=== PATIENT | female | born 1935 | race Caucasian/White ===

== ENCOUNTER 2017-02-16 19:19 | Emergency (ER) | payer MEDICARE ==
[~2017-02-16] VITALS: Ht 157.5 cm; Wt 61.2 kg
[2017-02-16] MEDS ORDERED: IV NORMAL SALINE 500 ML BAG IV ONE (19:30)
[2017-02-16 19:51] LABS: BASOPHILS # (AUTO) 0.1 K/uL (0.0-8.0); BASOPHILS % (AUTO) 1.1 % (0.0-2.0); EOSINOPHILS # (AUTO) 0.6 K/uL (0.0-0.7); EOSINOPHILS % (AUTO) 6.4 % (0.0-7.0); HEMATOCRIT 31.8 % (37-47); HEMOGLOBIN 10.8 G/DL (12.0-16.0); LYMPHOCYTES # (AUTO) 3.5 K/UL (0.8-4.8); LYMPHOCYTES % (AUTO) 35.2 % (20.5-51.5); MEAN CORPUSCULAR HEMOGLOBIN 30.5 UUG (27.0-31.0); MEAN CORPUSCULAR HGB CONC 34 g/dL (32.0-37.0); MEAN CORPUSCULAR VOLUME 89.9 FL (81.0-99.0); MONOCYTES % (AUTO) 10.3 % (0.0-11.0); NEUTROPHILS # (AUTO) 4.8 K/UL (1.8-8.9); PLATELET COUNT (AUTO) 259 K/UL (150-450); RED BLOOD CELL COUNT(AUTO) 3.54 MIL/UL (4.2-5.4)
[2017-02-16 20:03] LABS: ALBUMIN 3.3 g/dL (3.4-5.0); BILIRUBIN,DIRECT 0.1 mg/dL (0.0-0.2); BILIRUBIN,TOTAL 0.4 mg/dL (0.2-1.0); CALCIUM 8.6 mg/dL (8.5-10.1); CREATININE 1.2 mg/dL (0.6-1.3); POTASSIUM 4.1 mmol/L (3.5-5.1); TOTAL PROTEIN, SERUM 5.8 g/dL (6.4-8.2)
--- NOTE | 2017-02-16 20:22 | NUR ---
In and Out straight cath complete,Urine obtained and sent to Lab. Female wittness present at bedside for catheterization.
[2017-02-16] MEDS ORDERED: DORZ10DR11 OP (20:36)
[2017-02-16] MEDS ORDERED: ASPI-605 PO (20:36)
[2017-02-16] MEDS ORDERED: SERT25TA5 PO (20:36)
[2017-02-16] MEDS ORDERED: ENAL20TA PO (20:36)
[2017-02-16] MEDS ORDERED: LATANOPROST OP (20:36)
[2017-02-16] MEDS ORDERED: PRED5DRO7 OP (20:36)
[2017-02-16] MEDS ORDERED: ATOR40TA PO (20:36)
[2017-02-16] MEDS ORDERED: QUET25TA PO (20:36)
[2017-02-16] MEDS ORDERED: CALC1TAB3 PO (20:36)
[2017-02-16] MEDS ORDERED: BUSPAR PO (20:36)
[2017-02-16] MEDS ORDERED: CYAN10009 PO (20:36)
[2017-02-16 20:53] LABS: *BILIRUBIN,URIN NEGATIVE (NEGATIVE); *BLOOD, URINE NEGATIVE (NEGATIVE); *CLARITY,URINE CLEAR (CLEAR); *COLOR,URINE YELLOW (YELLOW); *KETONES,URINE NEGATIVE (NEGATIVE); *PROTEIN,URINE 1+ (NEGATIVE); *UROBILINOGEN,URINE 0.2 E.U./dl (NORMAL); LEUKOCYTE ESTERASE ,URINE NEGATIVE (NEGATIVE); NITRITE, URINE NEGATIVE (NEGATIVE); PH,URINE 7.5 (5.0-8.0); UGLUCOSE NEGATIVE (NEGATIVE)
[2017-02-16 21:02] LABS: MUCUS,URINE MODERATE /LPF (0-FEW); SQUAMOUS EPITHELIAL CELL,UR FEW /HPF (NONE SEEN); WBC,URINE 0-3 /HPF (0-3)
--- NOTE | 2017-02-16 21:27 | NUR ---
Patient discharged to home in stable conditon. Written and verbal after care instructions given. Patient verbalizes understanding of instructions. Ambulated from ER with assist, all belongings with patient. To be driven home by family member.
[2017-02-16 21:28] VITALS: BP 138/78
== END 2017-02-16 21:35 | disposition home or self-care (01) ==
LOC: ER 19:19
DX: E86.0 Dehydration (principal); R55 Syncope and collapse; F03.90 Unspecified dementia, unspecified severity, without behavioral disturbance, psychotic disturbance, mood disturbance, and anxiety; E78.5 Hyperlipidemia, unspecified; I10 Essential (primary) hypertension; Z79.82 Long term (current) use of aspirin
CPT/HCPCS: 36415; 51702; 71010; 80048; 80076; 81001; 84484; 85025; 85730; 93005; 96360; 99285; A4663; J7030; 70030-TC

== ENCOUNTER 2018-09-06 13:49 | Emergency (ER) | payer MEDICARE ==
[~2018-09-06] VITALS: Ht 154.9 cm; Wt 47.6 kg
[~2018-09-06 13:49] MED LIST: ASPI-605 PO; ATOR40TA PO; BUSPAR PO; CALC1TAB3 PO; CYAN10009 PO; DORZ10DR11 OP; ENAL20TA PO; LATANOPROST OP; PRED5DRO16 OP; QUET25TA PO; SERT25TA5 PO
[2018-09-06] MEDS ORDERED: MEMA10TA21 PO (14:07)
[2018-09-06] MEDS ORDERED: TIMOLOL MALEATE 0.5% OP (14:09)
[2018-09-06] MEDS ORDERED: EYE OP (14:09)
[2018-09-06] MEDS ORDERED: SERTRALINE HCL 50 MG (14:09)
[2018-09-06] MEDS ORDERED: DONEPEZIL HCL 5 MG (14:09)
[2018-09-06] MEDS ORDERED: ENALAPRIL MALEATE 20 MG (14:09)
--- NOTE | 2018-09-06 14:20 | NUR ---
peperineal hygiene provided for pt.
[2018-09-06 14:34] LABS: *BILIRUBIN,URIN NEGATIVE (NEGATIVE); *BLOOD, URINE NEGATIVE (NEGATIVE); *CLARITY,URINE CLEAR (CLEAR); *COLOR,URINE YELLOW (YELLOW); *KETONES,URINE NEGATIVE (NEGATIVE); *PROTEIN,URINE NEGATIVE (NEGATIVE); *UROBILINOGEN,URINE 0.2 E.U./dl (NORMAL); LEUKOCYTE ESTERASE ,URINE NEGATIVE (NEGATIVE); NITRITE, URINE NEGATIVE (NEGATIVE); PH,URINE 6.5 (5.0-8.0); UGLUCOSE NEGATIVE (NEGATIVE)
[2018-09-06 14:41] LABS: BASOPHILS # (AUTO) 0.1 K/uL (0.0-8.0); BASOPHILS % (AUTO) 0.6 % (0.0-2.0); EOSINOPHILS # (AUTO) 0.5 K/uL (0.0-0.7); EOSINOPHILS % (AUTO) 3.8 % (0.0-7.0); HEMATOCRIT 33.7 % (31.2-41.9); HEMOGLOBIN 11.2 g/dL (10.9-14.3); LYMPHOCYTES % (AUTO) 13.8 % (20.5-51.5); MEAN CORPUSCULAR HEMOGLOBIN 30.4 uug (24.7-32.8); MEAN CORPUSCULAR HGB CONC 33 g/dL (32.3-35.6); MEAN CORPUSCULAR VOLUME 91.8 fL (75.5-95.3); MONOCYTES # (AUTO) 1.7 K/uL (2.0-10.0); MONOCYTES % (AUTO) 11.9 % (0.0-11.0); NEUTROPHILS # (AUTO) 9.9 K/uL (1.8-8.9); NEUTROPHILS % (AUTO) 69.9 % (38.5-71.5); PLATELET COUNT (AUTO) 287 K/uL (179-408); RED BLOOD CELL COUNT(AUTO) 3.67 MIL/uL (3.63-4.92); WHITE BLOOD COUNT (AUTO) 14.2 K/uL (3.8-11.8)
[2018-09-06 14:49] LABS: MUCUS,URINE MODERATE /LPF (0-FEW); WBC,URINE 0-3 /HPF (0-3)
[2018-09-06 14:54] LABS: CARBON DIOXIDE 26 mmol/L (21-32); CHLORIDE 108 mmol/L (98-107); CREATININE 1.5 mg/dL (0.6-1.3); GLUCOSE 106 mg/dL (74-106); POTASSIUM 4.4 mmol/L (3.5-5.1); UREA NITROGEN, BLOOD 25 mg/dL (7-18)
[2018-09-06 14:58] LABS: ALANINE AMINOTRANSFERASE 27 U/L (14-59); ALKALINE PHOSPHATASE 96 U/L (50-136); ASPARTATE AMINOTRANSFERASE 20 U/L (15-37); BILIRUBIN,DIRECT 0.1 mg/dL (0.0-0.2); BILIRUBIN,TOTAL 0.3 mg/dL (0.2-1.0); TOTAL PROTEIN, SERUM 6.8 g/dL (6.4-8.2)
[2018-09-06 15:00] LABS: ACETAMINOPHEN < 2.0 ug/mL (10-30)
[2018-09-06 15:05] LABS: THYROID STIMULATING HORMONE 2.391 mIU/mL (0.358-3.740)
[2018-09-06 15:24] LABS: ETHANOL < 3 MG/DL (0-0)
[2018-09-06 15:25] LABS: *AMPHETAMINE, URINE NEGATIVE (NEGATIVE); *BARBITURATE, URINE NEGATIVE (NEGATIVE); *CANNABINOID, URINE NEGATIVE (NEGATIVE); *COCCAINE, URINE NEGATIVE (NEGATIVE); *OPIATE, URINE NEGATIVE (NEGATIVE); *PHENCYCLIDINE SCREEN,URINE NEGATIVE (NEGATIVE)
--- NOTE | 2018-09-06 15:55 | NUR ---
Patient discharged to home in stable conditon. Written and verbal after care instructions given to daughter and board and care personel verbalize understanding of instructions.pt wheel chaired out pt daughter car in front. pt was comfortable the whole er stay. board and care personnel and daughter at bedside.
[2018-09-06 16:05] VITALS: BP 118/55
== END 2018-09-06 15:50 | disposition home or self-care (01) ==
LOC: ER 13:49
DX: J18.1 Lobar pneumonia, unspecified organism (principal); R41.82 Altered mental status, unspecified; I10 Essential (primary) hypertension; E78.5 Hyperlipidemia, unspecified; Z79.82 Long term (current) use of aspirin; Z79.899 Other long term (current) drug therapy
CPT/HCPCS: 36415; 71045; 80048; 80076; 80307; 81001; 82140; 83605; 84443; 84484; 85025; 85730; 87040 ×2; 87086; 93005; 99284; G0480 ×2; G0481; 70030-TC; A4663; C1758; J7030